=== PATIENT | male | born 1955 | race Caucasian/White ===

== ENCOUNTER 2017-03-27 07:13 | Day surgery (SDC) | payer OTHER, BC ==
[2017-03-22 13:11] VITALS: BMI 30.4
[2017-03-27] MEDS ORDERED: LIDOCAINE HCL 2% (20ML MULTI-DOSE VIAL) NR ONE (08:39)
[2017-03-27] MEDS ORDERED: BUPIVACAINE HCL 0.25% 125 MG/50 ML VIAL ONE (08:39)
[2017-03-27] MEDS ORDERED: MIDAZOLAM HCL 2 MG/2 ML SINGLE DOSE VIAL ONE (08:49)
[2017-03-27] MEDS ORDERED: PROPOFOL 20 ML ONE ×5 (09:24)
[2017-03-27] MEDS ORDERED: HYDROmorphone HCL/PF 1 MG/ML VIAL (FOR PYXIS CHARGING ONLY) ONE (09:29)
[2017-03-27] MEDS ORDERED: oxyCODONE HCL 5 MG TABLET PO PRN (09:34)
[2017-03-27] MEDS ORDERED: ONDANSETRON 4 MG/2 ML VIAL IVPUSH PRN (09:34)
[2017-03-27] MEDS ORDERED: LACTATED RINGERS SOLUTION 1,000 ML IV SCH (09:45)
[2017-03-27] MEDS ORDERED: LIDOCAINE HCL 2% (50ML VIAL) INF ONE (09:59)
[2017-03-27 10:49] VITALS: TEMP 98.2
[2017-03-27 11:28] VITALS: BP 130/76
[2017-03-27 11:37] VITALS: PULSE 78
--- NOTE | 2017-03-28 07:39 | OP ---
DATE OF OPERATION: 03/27/2017 PREOPERATIVE DIAGNOSIS: Right ulnar nerve compression at wrist. POSTOPERATIVE DIAGNOSIS: Right ulnar nerve compression at wrist. OPERATIVE PROCEDURE: Right ulnar nerve decompression at wrist. SURGEON: Júnior Garces MD ELEVATOR OPERATOR SERVICE: CHIP Samuel ANESTHESIA: General. COMPLICATIONS: None. ESTIMATED BLOOD LOSS: Minimal. INDICATION FOR PROCEDURE: The patient is a 62-year-old male with the above finding, indicated for operative treatment. Risks, benefits, and alternatives were discussed with the patient at length. Proper informed consent was obtained. DESCRIPTION OF PROCEDURE: After proper identification of the patient and correct operative site, patient was brought to the operating room and placed supine on the operating table. All prominences were well padded. General anesthesia was applied by the anesthesiologist adequate for the procedure. Right upper extremity was prepped and draped in the usual sterile fashion. A well-padded tourniquet was placed as well as sterile prep. Esmarch bandage to exsanguinate the right upper extremity. Tourniquet was inflated to 250 mmHg. A curvilinear incision was made in between the fusiform and the hook of the hamate and coursing proximally and distally for about 2 cm in each direction. Incision was taken sharply through the skin, with blunt and sharp dissection through the subcutaneous tissues. Ulnar neurovascular bundle was identified proximally and traced from a [id number] direction. It was freed as it went under the volar carpal ligament, through Guyon canal. It was traced all the way to the arch of the hand. It was noted that there was significant hypertrophic veins in the area. There were no bony spicules in the floor of the Guyon canal. Once the nerve was completely released, the tourniquet was released, and the ulnar artery was found to be quite robust and did appear to be occluded at the wrist area. However, the hand was very well perfused, and there was no indication for any reconstruction. The diagnosis was consistent with hypothenar hammer syndrome. Wound was irrigated with saline and repaired with a 5-0 nylon suture. Sterile dressings were applied. Patient was reversed from anesthesia and brought to the recovery room in stable condition. He tolerated the procedure well. Reji [id number]
== END 2017-03-27 11:38 | disposition home or self-care (01) ==
LOC: FASU 07:13
PROVIDERS: ATTEND Orthopaedic Surgery Hand Surgery
PROC: 01N40ZZ Release Ulnar Nerve, Open Approach (ICD-10-PCS; principal; 2017-03-27 09:07)
DX: G56.21 Lesion of ulnar nerve, right upper limb (principal)
CPT/HCPCS: 94760